=== PATIENT | male | born 1970 | race Caucasian/White ===

== ENCOUNTER 2019-01-12 11:08 | Outpatient (CLI) | payer MEDICAID, SELFPAY ==
[2019-01-12 18:03] LABS: ALT 32 U/L (12-78); AST 23 U/L (15-37); Albumin 4.5 g/dL (3.4-5.0); Alkaline Phosphatase 56 U/L (46-116); Bilirubin, Direct 0.18 mg/dL (0.00-0.20); Bilirubin, Total 0.7 mg/dL (0.2-1.0); Total Protein 7.9 g/dL (6.4-8.2)
[2019-01-12 18:25] LABS: Cholesterol 302 mg/dL (50-200); HDL Cholesterol 67 mg/dL (40-60); LDL CHOLESTEROL 196 mg/dL (<100); Triglyceride 158 mg/dL (30-150)
== END 2019-01-12 11:28 ==
PROVIDERS: Visit Provider Internal Medicine Interventional Cardiology
DX: E78.5 Hyperlipidemia, unspecified (principal); R07.9 Chest pain, unspecified; I10 Essential (primary) hypertension
CPT/HCPCS: 36415; 80061; 80076; 83721; 93005; 93010

== ENCOUNTER 2019-04-24 09:42 | Outpatient (CLI) | payer MEDICAID, SELFPAY ==
[2019-04-24 11:52] LABS: Glucose 99 mg/dL (70-100)
== END 2019-04-24 10:02 ==
PROVIDERS: PCP General Practice; Visit Provider General Practice
DX: Z00.00 Encounter for general adult medical examination without abnormal findings (principal); Z13.1 Encounter for screening for diabetes mellitus
CPT/HCPCS: 36415; 82947

== ENCOUNTER 2019-10-15 12:42 | Emergency (ER) | payer MEDICAID, SELFPAY ==
[2019-10-15] VITALS (19 sets, daily range): BP systolic 127–144; BP diastolic 72–86; PULSE 77–103; RESP 14–28; TEMP 36.1–36.3; O2SAT 91–99
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
[2019-10-15 13:20] LABS: Magnesium 2.1 mg/dL (1.8-2.4)
[2019-10-15 13:21] LABS: Abs Immature Grans 0.06 k/cumm (0.0-0.09); Absolute Basophil Count 0.04 k/cumm (0.0-0.2); Absolute Eosinophil Count 0.49 k/cumm (0.0-0.7); Absolute Lymphocyte Count 2.08 k/cumm (1.2-3.4); Absolute Monocyte Count 0.95 k/cumm (0.11-0.7); Absolute Neutrophil Count 6.61 k/cumm (1.2-6.7); Basophils % 0.4; Eosinophils % 4.8; HCT 45.3 % (40.0-50.0); HGB 14.9 g/dL (13.5-17.5); Immature Grans % 0.6 %; Lymphocytes % 20.3; Mean Corp. HGB Concentration 32.9 g/dL (32.0-36.0); Mean Corpuscular Hemoglobin 27.2 pg (27.0-33.0); Mean Corpuscular Volume 82.7 fL (80-95); Monocytes % 9.3; Neutrophils % 64.6; Platelet Count 257 x1000/uL (130-400); RBC 5.48 m/cumm (4.50-6.00); RBC Distribution Width 13.7 % (11.8-14.1); White Blood Cell Count 10.23 k/cumm (4.4-10.8)
[2019-10-15 13:22] LABS: Troponin I < 0.05 ng/Ml (<0.06)
[2019-10-15] MEDS: Omnipaque 350 MG/ML 100 ML BTL IJ (13:29)
[2019-10-15] MEDS: Normal Saline - Diluent 50 ML VIAL IV (13:30)
[2019-10-15] MEDS: fentaNYL 100 MCG/2 ML VIAL IVP ×2 (13:33→14:12)
[2019-10-15 13:36] LABS: Prothrombin Time 9.9 sec (9.3-11.0)
[2019-10-15] MEDS: levoFLOXacin 750 MG/150 ML BAG 100 MG IVPB (14:12)
[2019-10-15] MEDS: Acetaminophen 500 MG TAB (14:55)
[2019-10-15] MEDS: HYDROmorphone 2 MG/ML VIAL (14:56)
== END 2019-10-15 15:13 | disposition short-term general hospital (02) ==
PROVIDERS: Emergency Provider Emergency Medicine; PCP General Practice
DX: S02.832A Fracture of medial orbital wall, left side, initial encounter for closed fracture (principal); V48.5XXA Car driver injured in noncollision transport accident in traffic accident, initial encounter; H11.32 Conjunctival hemorrhage, left eye; R05 Cough
CPT/HCPCS: 74177; 90471; 93005; 96365; 96372; 96375; 96376; 99285; 70450; 70480; 71260; 72125; 83735; 84484; 85025; 85610; 85730; 93010; J1956; J3010; J3490; L0172

== ENCOUNTER 2019-12-10 18:41 | Outpatient (REF) | payer MEDICAID, SELFPAY ==
[2019-12-10 18:55] LABS: ALT 37 U/L (16-63); AST 31 U/L (15-37); Albumin 4.1 g/dL (3.4-5.0); Alkaline Phosphatase 50 U/L (46-116); Anion Gap 11.8 mmol/L (3-11); BUN 16 mg/dL (7-18); Bilirubin, Total 0.6 mg/dL (0.2-1.0); CO2 26.2 mmol/L (21.0-32.0); CREATININE 1.35 mg/dL (0.70-1.30); Calcium 9.2 mg/dL (8.5-10.1); Calculated LDL 173 mg/dL (<100); Chloride 102 mmol/L (98-107); Cholesterol 252 mg/dL (<200); Estimated GFR 56.65 (mL/min/1.73m2); Glucose 101 mg/dL (74-106); HDL Cholesterol 42 mg/dL (40-60); Sodium 140 mmol/L (136-145); Total Protein 7.3 g/dL (6.4-8.2); Triglyceride 185 mg/dL (<150)
== END 2019-12-10 19:01 ==
LOC: NCHCN 18:41
PROVIDERS: PCP General Practice; Visit Provider Nurse Practitioner Family
DX: Z13.1 Encounter for screening for diabetes mellitus (principal); Z13.220 Encounter for screening for lipoid disorders
CPT/HCPCS: 80053; 80061

== ENCOUNTER 2020-12-23 08:58 | Outpatient (REF) | payer MEDICAID, SELFPAY ==
[2020-12-23 17:50] LABS: HCT 46.3 % (40.0-50.0); HGB 15.3 g/dL (13.5-17.5); MCH 27.9 pg (27.0-33.0); MCV 84.3 fL (80-95); MPV 10.6 fL (8.0-11.0); Platelet Count 207 10^3/uL (130-400); RBC 5.49 10^6/uL (4.36-5.78); RDW 13.1 % (11.8-14.1); RDW-SD 40.4 fL; WBC 7.21 10^3/uL (4.4-10.8)
[2020-12-23 18:21] LABS: ALT 39 U/L (16-63); AST 38 U/L (15-37); Albumin 4.4 g/dL (3.4-5.0); Alkaline Phosphatase 43 U/L (46-116); Anion Gap 10.9 mmol/L (3-11); BUN 17 mg/dL (7-18); Bilirubin, Total 0.6 mg/dL (0.2-1.0); CO2 26.1 mmol/L (21.0-32.0); CREATININE 1.2 mg/dL (0.70-1.30); Calcium 9.6 mg/dL (8.5-10.1); Calculated LDL 138 mg/dL (<100); Chloride 101 mmol/L (98-107); Cholesterol 262 mg/dL (<200); Glucose 120 mg/dL (74-106); HDL Cholesterol 55 mg/dL (40-60); Potassium 3.9 mmol/L (3.5-5.1); Sodium 138 mmol/L (136-145); Total Protein 8.2 g/dL (6.4-8.2); Triglyceride 346 mg/dL (<150)
[2020-12-26 10:32] LABS: Hepatitis C Ab w Rflx HCV PCR Negative (Negative)
[2020-12-26 11:59] LABS: HIV-1/2 Ag & Ab Screen Negative (Negative)
== END 2020-12-23 08:59 | disposition home or self-care (01) ==
LOC: LBN 08:58
PROVIDERS: PCP General Practice; Visit Provider Nurse Practitioner Family
DX: E78.5 Hyperlipidemia, unspecified (principal); I10 Essential (primary) hypertension; F10.10 Alcohol abuse, uncomplicated; Z13.1 Encounter for screening for diabetes mellitus; Z51.81 Encounter for therapeutic drug level monitoring; Z11.59 Encounter for screening for other viral diseases; Z11.4 Encounter for screening for human immunodeficiency virus [HIV]
CPT/HCPCS: 80053; 80061; 85027; 86803; 87389

== ENCOUNTER 2023-02-11 08:21 | Day surgery (SDC) | payer MEDICAID, SELFPAY ==
--- NOTE | 2023-02-10 20:16 | W.PM.DSUDISC ---
Date of service: 02/11/23 Time of Service: 11:23 Discharge Plan Disposition Patient Disposition: Home Condition: Good Discharge Details Reason For Visit: Screening colonoscopy Attending Provider: Damián Etienne Primary Care Provider: Aydin Escobar Home Meds and New Rx's Prescriptions: Continued amlodipine 5 MG tablet 5 mg PO DAILY Qty: 90 3RF omeprazole 20 MG capsule,delayed release(DR/EC) 20 mg PO DAILY Qty: 90 3RF hydrochlorothiazide 25 MG tablet 25 mg PO DAILY Qty: 90 3RF losartan 100 mg tablet 100 mg PO DAILY Qty: 90 4RF fenofibrate nanocrystallized [Tricor] 145 mg tablet 145 mg PO DAILY Qty: 90 4RF rosuvastatin 20 mg tablet 20 mg PO DAILY Discontinued polyethylene glycol 3350 17 gram/dose powder 238 g PO ONCE Qty: 238 0RF Rx Instructions: take per colonoscopy instructions bisacodyl [Dulcolax (bisacodyl)] 5 mg tablet,delayed release (DR/EC) 5 mg PO ONCE Qty: 4 0RF Rx Instructions: take per colonoscopy instructions Discharge Instructions Additional Instructions: Ran, you had a completely normal colonoscopy today. We were able to complete the procedure without any difficulty. The quality of your preparation was excellent. I did not see any signs of polyps or tumors. You should consider having another colonoscopy in 10 years to reduce your chances of dying from colon cancer over the course of your lifetime. 1. If tolerated, consume a soft, low fiber diet for 1-2 days. 2[address] Do not drive, drink alcohol, operate machinery, make critical decisions, or do activities that require coordination or balance for 24 hours. 3. Because air was put into your colon during the procedure, expelling air from your rectum (passing gas or farting) is normal. 4. You may not have a bowel movement for 1-3 days because of the colonoscopy prep. This is normal. 5. Go directly to the emergency room if you notice any of the following: Develop chills (warm to touch), or if you have a thermometer and your temperature is above 101 Difficulty breathing or difficultly swallowing Persistent vomiting Severe abdominal pain, other than gas cramps Severe chest pain Black, tarry stools Any bleeding ? exceeding one tablespoon 6. Call your physician if the site where your intravenous was started becomes red, swollen, painful, and warm to touch. 7. Your physician has reviewed your pre-procedure medications. Please continue to take those medications as previously ordered. You will be given specific information/education regarding any changes to your medications before leaving. Activity:: Activity as Tolerated Diet:: As Tolerated Discharge Orders Discharge Orders: Discharge Order (Routine); Ordered 02/10/23 Ordered By: Damián Etienne DS: Diagnosis Discharge Diagnosis (1) Screening for colon cancer: Status: Acute Asessment and Plan: Negative screening colonoscopy. He should consider another one in 10 years
--- NOTE | 2023-02-10 20:17 | W.COLOREPORT ---
Date of service: 02/11/23 Time of Service: 11:24 Colonoscopy Report Date of procedure: 02/11/23 Pre-op diagnosis general: Screening colonoscopy Post-op diagnosis procedure note: same Procedure: Colonoscopy Surgeon: Damián Etienne Anesthesia Type: General:No Airway Estimated blood loss (mL): 0 Pathology: none sent Complications: None Disposition: same day Indications: Ran is a 52 year olf man here for his first screening colonoscopy Prep: Miralax/Dulcolax Procedure Start Time: 11:03 Procedure End Time: 11:12 Retraction Time: 6 Findings: Negative screening colonoscopy Procedure Description: After the induction of monitored anesthetic care, and with the patient in left lateral decubitus position, I began by performing an external anorectal exam.? Perineum and skin were normal, as was the anal verge.? There was no not evidence of external hemorrhoids.? Next, I performed a digital rectal exam.? I did appreciate any abnormal findings.? Next, I advanced a colonoscope into the rectal vault.? I performed retroflexion.? This appeared normal.? Using insufflation, I then advanced the colonoscope beyond the rectal folds and into the sigmoid colon before advancing towards the cecum.? The quality of the prep was excellent.? The scope was noted to be in the cecum by identification of the ileocecal valve and appendiceal orifice.? I then began withdrawing the colonoscope using repeated irrigation as necessary for full evaluation of the colonic mucosa. ?Once the scope was withdrawn to the level of the rectum, great care was taken to examine portions of the rectal folds.? I did not see any signs of tumors or polyps. Finally, the scope was withdrawn and the patient was brought to the same-day surgery recovery unit as the anesthetic wore off. ?The findings and instructions were shared with the patient prior to discharge.
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
[2023-02-11 08:41] VITALS: BP 124/78; PULSE 76; RESP 16; TEMP 36.3; O2SAT 97
[2023-02-11] MEDS: Lactated Ringers 1,000 ML 80 ML IV (09:02)
[2023-02-11 09:21] VITALS: BMI 36.5
[2023-02-11 11:16] VITALS: BP 116/79; PULSE 79; RESP 17; TEMP 36.6; O2SAT 96
[2023-02-11 11:45] VITALS: BP 145/93; PULSE 69; RESP 18; TEMP 36.5; O2SAT 96
--- NOTE | 2023-02-11 12:24 | W.ANESPOSTOP ---
Postoperative Evaluation Date, Time and Location Date Performed: 02/11/23 Time Performed: 12:25 Patient Location: Day Surgery Unit Vital Signs Most Recent Imported Vital Signs: Most Recent Vital Signs Temp Pulse Resp BP Pulse Ox 36.5 C 69 18 145/93 H 96 02/11/23 11:45 02/11/23 11:45 02/11/23 11:45 02/11/23 11:45 02/11/23 11:45 Pain Score Most Recent Pain Score: Most Recent Pain Score Pain Level 0 02/11/23 11:45 Assessment Mental Status: Awake (Alert & Oriented to Patient Baseline) Airway and Respiratory Function: Patent airway with normal (patient baseline) respiratory exam Cardiovascular Function: Hemodynamically Stable Hydration Status: Adequately Hydrated Nausea & Vomiting: No Nausea or Vomiting Pain: Pt. Denies Any Pain Peripheral Nerve Block: Patient did not receive a nerve block
== END 2023-02-11 11:49 | disposition home or self-care (01) ==
PROVIDERS: PCP Nurse Practitioner Family; Visit Provider Surgery
PROC: 0DJD8ZZ Inspection of Lower Intestinal Tract, Via Natural or Artificial Opening Endoscopic (ICD-10-PCS; CPT 45378; principal; 2023-02-11 10:00)
DX: Z12.11 Encounter for screening for malignant neoplasm of colon (principal)
CPT/HCPCS: 45378

== ENCOUNTER 2023-04-29 20:21 | Outpatient (REF) | payer BC, SELFPAY ==
[2023-04-29 15:04] LABS: Hemoglobin A1C 5.2 % (<5.7)
[2023-04-29 15:20] LABS: ALT 70 U/L (16-63); AST 88 U/L (15-37); Albumin 3.9 g/dL (3.4-5.0); Alkaline Phosphatase 75 U/L (46-116); Anion Gap 12.5 mmol/L (3-11); BUN 18 mg/dL (7-18); Bilirubin, Total 0.6 mg/dL (0.2-1.0); CO2 25.5 mmol/L (21.0-32.0); CREATININE 1.3 mg/dL (0.70-1.30); Calcium 8.9 mg/dL (8.5-10.1); Chloride 100 mmol/L (98-107); Cholesterol 272 mg/dL (<200); Estimated GFR 66.51 (mL/min/1.73m2); Glucose 129 mg/dL (74-106); HDL Cholesterol 29 mg/dL (40-60); Potassium 3.9 mmol/L (3.5-5.1); Sodium 138 mmol/L (136-145); Total Protein 7.6 g/dL (6.4-8.2)
[2023-04-29 15:22] LABS: Triglyceride 1146 mg/dL (<150)
[2023-04-29 15:34] LABS: LDL CHOLESTEROL 94 mg/dL (<100)
[2023-04-29 23:25] LABS: PSA, Screening 0.7 ng/mL (<=3.5)
== END 2023-04-29 20:22 | disposition home or self-care (01) ==
LOC: NCHCN 20:21
PROVIDERS: PCP Physician Assistant; Visit Provider Physician Assistant
DX: Z12.5 Encounter for screening for malignant neoplasm of prostate (principal); Z13.1 Encounter for screening for diabetes mellitus; E78.5 Hyperlipidemia, unspecified
CPT/HCPCS: 80053; 80061; 83721; 84153; 83036

== ENCOUNTER 2024-02-17 10:30 | Emergency (ER) | payer BC, SELFPAY ==
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
[2024-02-17 10:33] VITALS: BP 150/82; PULSE 67; RESP 20; TEMP 37.2; O2SAT 95
[2024-02-17] MEDS: HYDROmorphone 2 MG/ML SYR 0.5 MG IVP (11:12)
[2024-02-17] MEDS: Normal Saline - Diluent 50 ML VIAL IJ (11:17)
[2024-02-17] MEDS: Omnipaque 350 MG/ML 100 ML BTL IJ (11:18)
[2024-02-17 11:23] LABS: Abs Immature Grans 0.02 10^3/uL (0.0-0.06); Absolute Basophil Count 0.05 10^3/uL (0.0-0.2); Absolute Eosinophil Count 0.13 10^3/uL (0.0-0.7); Absolute Lymphocyte Count 1.76 10^3/uL (1.2-3.4); Absolute Monocyte Count 0.56 10^3/uL (0.1-0.8); Absolute Neutrophil Count 3.76 10^3/uL (1.2-6.7); Basophils % 0.8 %; Eosinophils % 2.1 %; HCT 45.3 % (40.0-50.0); Immature Grans % 0.3 %; MCH 28.2 pg (27.0-33.0); MCHC 33.1 % (32.0-36.0); MCV 85 fL (80-95); Monocytes % 8.9 %; Neutrophils % 59.9 %; RBC 5.32 10^6/uL (4.36-5.78); RDW 12.9 % (11.8-14.1); RDW-SD 39.9 fL; WBC 6.28 10^3/uL (4.4-10.8)
[2024-02-17 11:41] LABS: ALT 56 U/L (16-63); AST 58 U/L (15-37); Alkaline Phosphatase 91 U/L (46-116); BUN 17 mg/dL (7-18); Bilirubin, Total 0.4 mg/dL (0.2-1.0); CREATININE 1.1 mg/dL (0.70-1.30); Calcium 8.9 mg/dL (8.5-10.1); Chloride 99 mmol/L (98-107); Diff Comment Diff Reviewed; Estimated GFR 80.77 (mL/min/1.73m2); Glucose 107 mg/dL (74-106); Potassium 3.8 mmol/L (3.5-5.1); RBC Morphology Normal; Sodium 136 mmol/L (136-145)
[2024-02-17] MEDS: Lidocaine 5% Patch 1 PATCH TP (13:06)
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
== END 2024-02-17 13:05 | disposition home or self-care (01) ==
PROVIDERS: Emergency Provider Emergency Medicine; PCP Physician Assistant
DX: S22.42XA Multiple fractures of ribs, left side, initial encounter for closed fracture (principal); R07.82 Intercostal pain; V28.39XA Person boarding or alighting other motorcycle injured in noncollision transport accident, initial encounter
CPT/HCPCS: 36415; 80053; 96374; 99285; 71260; 85025; 99283; J1170; J3490

== ENCOUNTER 2024-02-27 10:56 | Outpatient (REF) | payer BC, SELFPAY ==
[2024-02-27 16:25] LABS: Calculated LDL 98 mg/dL (<100); Cholesterol 203 mg/dL (<200); HDL Cholesterol 58 mg/dL (40-60); Triglyceride 238 mg/dL (<150)
== END 2024-02-27 10:57 | disposition home or self-care (01) ==
LOC: NCHCN 10:56
PROVIDERS: PCP Physician Assistant; Visit Provider Physician Assistant
DX: E78.5 Hyperlipidemia, unspecified (principal)
CPT/HCPCS: 80061

== ENCOUNTER 2024-10-01 10:20 | Outpatient (REF) | payer BC, SELFPAY ==
--- OUTSIDE RECORDS SUMMARY | 2024-10-01 10:21 | XMS_ITS | Encounter Summary ---
Author Organization [facility] Address [address] [place] [address] Care Team Providers Care Academic Services Coordinator Name Role Phone Unavailable Primary Care Provider Unavailabl e Reason for Visit * Reason Comments Other Encounter Details Date Type Department Care Team (Late st Contact Info) Description 09/30/2019 Refill [facility] Clinic [address] [place] [address] Enmanuel Chris NP [address] [place] [address] Other Social History Tobacco Use Types Packs/Day Years Used Date Smoking Tobacco: Never Assessed Sex and Gender Information Value Date Recorded Sex Assigned at Not on file Legal Sex Male 19:33 EDT Gender Identity Not on file Sexual Orientation Not on file documented as of this encounter Plan of Treatment Not on file documented as of this encounter Visit Diagnoses Not on filedocumented in this encounter
--- OUTSIDE RECORDS SUMMARY | 2024-10-01 10:21 | XMS_ITS | Referral Summary ---
Author Organization [facility] Address [address] [place] [address] Care Team Providers Care Nipple Maker Name Role Phone Unavailable Primary Care Provider Unavailabl e Social History Tobacco Use Types Packs/Day Years Used Date Smoking Tobacco: Never Assessed Sex and Gender Information Value Date Recorded Sex Assigned at Not on file Legal Sex Male 19:33 EDT Gender Identity Not on file Sexual Orientation Not on file Plan of Treatment Not on file Procedures Procedure Name Priority Date/Time Associated Diagnosis Comments HEPATITIS C AB W REFLEX TO HCV RNA BY PCR Routine 12/23/2020 8:30 EDT from Last 3 Months or Most Recently Relevant to Health Maintenance Results * HEPATITIS C AB W REFLEX TO HCV RNA BY PCR (12/23/2020 8:30 EDT) Hep C Antibody Negative Negative 12/26/2020 10:26 EDT [facility] Blood VENOUS BLOOD / Unknown 12/23/2020 8:30 EDT 12/25/2020 17:31 EDT us Provider Outr Resulting Lab CHEMISTRY & BLOOD GA S ORDERABLES Final Result [facility] [address] [place] [address] from Last 3 Months or Most Recently Relevant to Health Maintenance
--- OUTSIDE RECORDS SUMMARY | 2024-10-01 10:21 | XMS_ITS | Encounter Summary ---
Author Organization [facility] Address [address] [place] [address] Care Team Providers Care Motor Tester Name Role Phone Unavailable Primary Care Provider Unavailabl e Encounter Details Date Type Department Care Team (Late st Contact Info) Description 12/24/2020 Lab Requisition [facility] Pathology & Laboratory Medicine - [facility] [address] [place] [address] Outr Resulting Lab, Provider Social History Tobacco Use Types Packs/Day Years Used Date Smoking Tobacco: Never Assessed Sex and Gender Information Value Date Recorded Sex Assigned at Not on file Legal Sex Male 19:33 EDT Gender Identity Not on file Sexual Orientation Not on file documented as of this encounter Plan of Treatment Not on file documented as of this encounter Procedures Procedure Name Priority Date/Time Associated Diagnosis Comments HEPATITIS C AB W REFLEX TO HCV RNA BY PCR Routine 12/23/2020 8:30 EDT documented in this encounter Results * HEPATITIS C AB W REFLEX TO HCV RNA BY PCR (12/23/2020 8:30 EDT) Hep C Antibody Negative Negative 12/26/2020 10:26 EDT [facility] Blood VENOUS BLOOD / Unknown 12/23/2020 8:30 EDT 12/25/2020 17:31 EDT us Provider Outr Resulting Lab CHEMISTRY & BLOOD GA S ORDERABLES Final Result [facility] [address] [place] [address] documented in this encounter Visit Diagnoses Not on filedocumented in this encounter
--- OUTSIDE RECORDS SUMMARY | 2024-10-01 10:21 | XMS_ITS | Clinical Summary ---
Author Organization [facility] Address [facility] [place] [address] Care Team Providers Care Line Service Person Name Role Phone Jameel Cuenca MD Primary Care Provider [phone] Allergies No known active allergies Medications Medication Sig Dispensed Refills Start Date End Date Status benzonatate (TESSALON) 100 mg Capsule Take 1 capsule by mouth 3 times daily as needed for Cough. 30 tablet 10/16/2019 Active oxyCODONE (ROXICODONE) 5 mg Tablet Take 1-2 tablets by mouth every 4 hours as needed for Pain. No driving, no alcohol 4 tablet 10/16/2019 Active Social History Tobacco Use Types Packs/Day Years Used Date Smoking Tobacco: Never Assessed Sex and Gender Information Value Date Recorded Sex Assigned at Not on file Gender Identity Not on file Sexual Orientation Not on file Last Filed Vital Signs Vital Sign Reading Time Taken Comments Blood Pressure 132/73 10/16/2019 12:00 PM EST Pulse 76 10/16/2019 12:00 PM EST Temperature 36.5 ??C (97.7 ??F) 10/15/2019 4:27 PM ES T Respiratory Rate 23 10/16/2019 12:00 PM EST Oxygen Saturation 91% 10/16/2019 12:00 PM EST Inhaled Oxygen Concentration - - Weight 111.1 kg (245 lb) 10/15/2019 4:27 PM EST Height 172.7 cm (5' 8) 10/15/2019 4:27 PM EST Body Mass Index 37.25 10/15/2019 4:27 PM EST Plan of Treatment Health Maintenance Due Date Last Done Comments CT Colonography 1971 Colonoscopy 1971 Colorectal Cancer Screening 1971 FIT DNA 1971 FIT 1971 Sigmoidoscopy (10 year) with FIT yearly 1971 Sigmoidoscopy 1971 HIV screen 12/11/1989 Hepatitis C Screening 12/11/1989 Lipid Screening 12/11/1989 Hepatitis B vaccine (0-59 yrs) (1) 12/11/1990 Tetanus/Diphtheria/Pertussis Vaccines (1 - Tdap) 12/11 Zoster vaccine (1 of 2) 12/11/2021 Covid-19 Vaccine (1 - 2023-25 season) 2024 Influenza (Flu) vaccine (1 o f 1 - Influenza standard series) 06/07/2024 Diabetes Screening (HgbA1C or Glucose) Discontinued Procedures Procedure Name Priority Date/Time Associated Diagnosis Comments BASIC METABOLIC PANEL STAT 10/15/2019 5:15 PM EST from Last 3 Months or Most Recently Relevant to Health Maintenance Results * (ABNORMAL) Basic Metabolic Panel (non-fasting) (10/15/2019 5:15 PM EST) Glucose 120 65 - 199 mg/dL [facility] Comment:Diabetes: >=200 mg/d L plus symptoms Blood Urea Nitrogen 15 10 - 20 mg/dL [facility] Creatinine 1.28 0.80 - 1.50 mg/dL [facility] Sodium 134(L) 135 - 145 mmol/L [facility] Potassium 4.1 3.5 - 5.0 mmol/L [facility] Comment: Please note: ??Patients with WBC >100,000 may have falsely elevated Potassium levels. ??For accurate Potassium quantification in these patients send serum separator tube (gold top) for subsequent determinations. ??Contact the Clinical Chemistry Laboratory if there are any questions. Chloride 95(L) 98 - 107 mmol/L [facility] Carbon Dioxide 21(L) 22 - 31 mmol/L [facility] Anion Gap 18(H) 5 - 15 mmol/L [facility] Calcium 9.4 8.5 - 10.5 mg/dL [facility] Est Glomerular Filtration Rate 66 >=60 mL/min/1. 73 m?? [facility] Comment: The eGFR was calculated using the CKD-EPI equation. As with all creatinine based estimates of kidney function, eGFR values calculated with the CKD-EPI equation are not accurate in patients with acute kidney failure, extremes of body mass or the acutely ill. http://WorldE[employer]/DHnkf eGFR 77 >=60 mL/min/1. 73 m?? [facility] Comment: The eGFR was calculated using the CKD-EPI equation. As with all creatinine based estimates of kidney function, eGFR values calculated with the CKD-EPI equation are not accurate in patients with acute kidney failure, extremes of body mass or the acutely ill. [email or web address]/DHnkf Blood specimen (specimen) 10/15/2019 5:15 PM EST 10/15/2019 5:26 PM EST Narrative Resulting Agency Comment Spec In Lab Stone Melgoza MD CHEMISTRY ORDERABLES [facility] [place] [address] from Last 3 Months or Most Recently Relevant to Health Maintenance Advance Directives * Full Code (Latest Code Status on File) Date Activated Date Inactivated Comments 10/15/2019 11:05 PM 10/16/2019 2:53 PM Question Answer Comments Does patient have capacity to make decision: Yes Care Teams Line Service Person Relationship Specialty Start Date End Date Jameel Cuenca MD [address] [facility] [place] [address] PCP - General [facility] 10/15/19
--- OUTSIDE RECORDS SUMMARY | 2024-10-01 10:21 | XMS_ITS | Clinical Summary ---
Author Organization [facility] Address [address] [place] [address] Care Team Providers Care Lock Corner Machine Operator Name Role Phone Unavailable Primary Care Provider Unavailabl e Social History Tobacco Use Types Packs/Day Years Used Date Smoking Tobacco: Never Assessed Sex and Gender Information Value Date Recorded Sex Assigned at Not on file Legal Sex Male 19:33 EDT Gender Identity Not on file Sexual Orientation Not on file Plan of Treatment Health Maintenance Due Date Last Done Comments Hepatitis B Vaccine (1 of 3 - 19+ 3-dose series) 12/11 COVID-19 Vaccine ( season) 2024 Hepatitis C Screen Completed 12/23/2020 Procedures Procedure Name Priority Date/Time Associated Diagnosis Comments HEPATITIS C AB W REFLEX TO HCV RNA BY PCR Routine 12/23/2020 8:30 EDT from Last 3 Months or Most Recently Relevant to Health Maintenance Results * HEPATITIS C AB W REFLEX TO HCV RNA BY PCR (12/23/2020 8:30 EDT) Hep C Antibody Negative Negative 12/26/2020 10:26 EDT [facility] Blood VENOUS BLOOD / Unknown 12/23/2020 8:30 EDT 12/25/2020 17:31 EDT us Provider Outr Resulting Lab CHEMISTRY & BLOOD GA S ORDERABLES Final Result [facility] [address] [place] [address] from Last 3 Months or Most Recently Relevant to Health Maintenance
--- OUTSIDE RECORDS SUMMARY | 2024-10-01 10:21 | XMS_ITS | Encounter Summary ---
Author Organization [facility] Address [facility] [place] [address] Care Team Providers Care Manager Product Marketing Name Role Phone Jameel Cuenca MD Primary Care Provider [phone] Encounter Details Date Type Department Care Team (Late st Contact Info) Description 10/16/2019 1:15 AM EST Ancillary Procedure Radiology Library at [facility] [place] [address] Social History Tobacco Use Types Packs/Day Years Used Date Smoking Tobacco: Never Assessed Sex and Gender Information Value Date Recorded Sex Assigned at Not on file Gender Identity Not on file Sexual Orientation Not on file documented as of this encounter Plan of Treatment Not on file documented as of this encounter Procedures Procedure Name Priority Date/Time Associated Diagnosis Comments REQUEST FOR 2ND READ CT HEAD AND SPINE STAT 10/15/2019 8:23 PM EST documented in this encounter Results * Request For 2nd Read CT Head And Spine (10/15/2019 8:23 PM EST) Anatomical Region Laterality Modality Head, C-spine, T-spine, L-spine SO Impressions 10/16/2019 4:16 AM EST 1. ??No acute intracranial hemorrhage, depressed calvarial fracture, or acute cervical vertebral osseous injury identified. 2. ??Comminuted fracture of the LEFT lamina papyracea. 3. ??Mildly displaced fracture of the floor of the LEFT orbit. 4. ??Trace LEFT intraorbital hemorrhage, with mild proptosis. 5. ??Comminuted nasal bones fracture as well as the nasal septum. Preliminary report signed by: Ilan Cox at 10/16/2019 4:09 AM I have personally reviewed the image(s) and the resident's interpretation and agree with the findings, Miguel Kennedy at 10/16/2019 4:16 AM Thank you for letting us participate in the care of this patient. For questions regarding this report, please contact the number below. ? Narrative 10/16/2019 4:16 AM EST EXAMINATION: REQUEST FOR 2ND READ CT HEAD AND SPINE CLINICAL HISTORY: Trauma; What Modality is the exam? CT Scan; Body Part (please add comments as necessary): Head and spine; I believe a reinterpretation of this exam may alter care of Patient. Yes TECHNIQUE: Reinterpretation request for outside: * ??Noncontrast CT head. * ??Noncontrast CT cervical spine. COMPARISON: None FINDINGS: HEAD: Loera-white interface appears relatively well differentiated. No acute intracranial hemorrhage identified. No significant mass effect appreciated. Included mastoid air cells appear well-aerated. Calvarium appears intact. LEFT periorbital soft tissue swelling also involving the region of the nose as well as extending to the forehead. Comminuted nasal bones fracture as well as the nasal septum. Comminuted fracture of the LEFT lamina papyracea. Mildly displaced fracture of the floor of the LEFT orbit. Trace LEFT intraorbital hemorrhage, with mild proptosis. Near-complete opacification of the maxillary sinuses and ethmoid air cells as well as complete opacification of the RIGHT frontal sinus; hyperdense components in these regions could be any combination of blood products, proteinaceous/subcutaneous secretions, fungal colonization. Mucosal thickening in the RIGHT sphenoid sinus. LEFT sphenoid sinus polyp or mucous retention cyst. CERVICAL SPINE: No evidence of acute traumatic malalignment appreciated. No acute fracture identified. Unremarkable prevertebral soft tissues. Procedure Note Miguel Kennedy MD - 10/16/2019 EXAMINATION: REQUEST FOR 2ND READ CT HEAD AND SPINE CLINICAL HISTORY: Trauma; What Modality is the exam? CT Scan; Body Part(please add comments as necessary): Head and spine; I believe a reinterpretationof this exam may alter care of Patient. Yes TECHNIQUE: Reinterpretation request for outside: * Noncontrast CT head. * Noncontrast CT cervical spine. COMPARISON: None FINDINGS: HEAD: Loera-white interface appears relatively well differentiated. No acute intracranial hemorrhage identified. No significant mass effect appreciated. Included mastoid air cells appear well-aerated. Calvarium appears intact. LEFT periorbital soft tissue swelling also involving the region of thenose as well as extending to the forehead. Comminuted nasal bones fracture as well as the nasal septum. Comminutedfracture of the LEFT lamina papyracea. Mildly displaced fracture of the floor ofthe LEFT orbit. Trace LEFT intraorbital hemorrhage, with mild proptosis.Near-complete opacification of the maxillary sinuses and ethmoid air cells as well ascomplete opacification of the RIGHT frontal sinus; hyperdense components in theseregions could be any combination of blood products, proteinaceous/subcutaneous secretions, fungal colonization. Mucosal thickening in the RIGHT sphenoidsinus. LEFT sphenoid sinus polyp or mucous retention cyst. CERVICAL SPINE: No evidence of acute traumatic malalignment appreciated. No acute fracture identified. Unremarkable prevertebral soft tissues. IMPRESSION 1. No acute intracranial hemorrhage, depressed calvarial fracture, oracute cervical vertebral osseous injury identified. 2. Comminuted fracture of the LEFT lamina papyracea. 3. Mildly displaced fracture of the floor of the LEFT orbit. 4. Trace LEFT intraorbital hemorrhage, with mild proptosis. 5. Comminuted nasal bones fracture as well as the nasal septum. Preliminary report signed by: Ilan Cox at 10/16/2019 4:09 AM I have personally reviewed the image(s) and the resident's interpretationand agree with the findings, Miguel Kennedy at 10/16/2019 4:16 AM Thank you for letting us participate in the care of this patient. Forquestions regarding this report, please contact the number below. Stone Melgoza MD IMG OUTSIDE INTERPRE TATION ORDERABLES documented in this encounter Visit Diagnoses Not on filedocumented in this encounter Care Teams Manager Product Marketing Relationship Specialty Start Date End Date Jameel Cuenca MD [address] [facility] [place] [address] PCP - [facility] Medicine 10/15/19 documented as of this encounter
--- OUTSIDE RECORDS SUMMARY | 2024-10-01 10:21 | XMS_ITS | Encounter Summary ---
Author Organization [facility] Address [address] [place] [address] Care Team Providers Care Engine Cowling Installer Name Role Phone Unavailable Primary Care Provider Unavailabl e Encounter Details Date Type Department Care Team (Late st Contact Info) Description 04/29/2023 Lab Requisition [facility] Pathology & Laboratory Medicine - [facility] [address] [place] [address] Outr Resulting Lab, Provider Social History Tobacco [...] Procedure Name Priority Date/Time Associated Diagnosis Comments PSA TOTAL, DIAGNOSTIC Routine 04/29/2023 8:20 EDT documented in this encounter Results * PSA TOTAL, DIAGNOSTIC (04/29/2023 8:20 EDT) PSA 0.7 <=3.5 ng/mL 04/29/2023 23:20 EDT [facility] Blood VENOUS BLOOD / Unknown 04/29/2023 8:20 EDT 04/29/2023 21:46 EDT Narrative [facility] - 04/29/2023 23:20 EDT NOTE: Serum PSA concentration should not be interpreted as absolute evidence for the presence or absence of malignant disease. Assayed on Siemens ADVIA Centaur XPT using chemiluminescent technology.??Values obtained by using different assay methods cannot be used interchangeably. us Provider Outr Resulting Lab CHEMISTRY & BLOOD GA S ORDERABLES Final Result [facility] [address] [place] [address] documented in this encounter Visit Diagnoses Not on filedocumented in this encounter
--- OUTSIDE RECORDS SUMMARY | 2024-10-01 10:21 | XMS_ITS | Encounter Summary ---
Author Organization [facility] [address] [place] [address] Care Team Providers Care Family Assessment Worker Name Role Phone Jameel Cuenca MD Primary Care Provider [phone] Encounter Details Date Type Department Care Team (Latest Contact Info) Description 10/16/2019 5:20 AM EST - 10/16/2019 11:59 PM EST Hospital Encounter Non-Invasive Cardiology Lab [facility] [place] [phone] Discharge Disposition: Home Social History Tobacco Use Types Packs/Day Years Used Date Smoking Tobacco: Never Assessed Sex and Gender Information Value Date Recorded Sex Assigned at Not on file Gender Identity Not on file Sexual Orientation Not on file documented as of this encounter Medications at Time of Discharge Medication Sig Dispensed Refills Start Date End Date benzonatate (TESSALON) 100 mg Capsule Take 1 capsule by mouth 3 times daily as needed for Cough. 30 tablet 10/16/2019 oxyCODONE (ROXICODONE) 5 mg Tablet Take 1-2 tablets by mouth every 4 hours as needed for Pain. No driving, no alcohol 4 tablet 10/16/2019 documented as of this encounter Plan of Treatment Not on file documented as of this encounter Procedures Procedure Name Priority Date/Time Associated Diagnosis Comments ECHO COMPLETE W CONTRAST Routine 10/16/2019 10:52 AM EST Syncope and collapse documented in this encounter Visit Diagnoses Not on filedocumented in this encounter Administered Medications Inactive Administered Medications - up to 3 most recent administrations Medication Order MAR Action Action Date Dose Rate Site perflutren protein-A microspheres (OPTISON) 0.22 mg/mL injection 0.5 mL 0.5 mL, Intravenous, ONCE PRN, 1 dose, Starting on Sat10/16/19 at 1052, Until Sat10/16/19 at 0930, for enhancement of sub-optimal echo images, Echo Lab (Intra-Procedure), Routine Given 10/16/2019 9:30 AM EST 1.2 mLs documented in this encounter Care Teams Family Assessment Worker Relationship Specialty Start Date End Date Jameel Cuenca MD [address] [facility] [facility] [place] [address] PCP - [facility] Medicine 10/15/19 documented as of this encounter
--- OUTSIDE RECORDS SUMMARY | 2024-10-01 10:21 | XMS_ITS | Encounter Summary ---
Author Organization [facility] Address [address] [place] [address] Care Team Providers Care Merchandise Flow Associate Name Role Phone Unavailable Primary Care Provider Unavailabl e Encounter Details Date Type Department Care Team (Late st Contact Info) Description 12/24/2020 Lab Requisition [facility] Pathology & Laboratory Medicine - [facility] [address] [place] [address] Outr Resulting Lab, Provider Social History Tobacco [...] Procedure Name Priority Date/Time Associated Diagnosis Comments HIV 1/2 ANTIGEN AND ANTIBODY, 4TH GENERATION Routine 12/23/2020 8:30 EDT documented in this encounter Results * HIV 1/2 ANTIGEN AND ANTIBODY, 4TH GENERATION (12/23/2020 8:30 EDT) HIV 1 and 2 Antibody/p24 Antigen, 4th Generation Negative Negative 12/26/2020 11:53 EDT [facility] Comment: If acute HIV-1 infection is suspected in a high risk ??patient, submit plasma specimen for HIV-1 RNA quantitation test. Fourth Generation assay performed on the Siemens Centaur. Blood VENOUS BLOOD / Unknown 12/23/2020 8:30 EDT 12/25/2020 17:31 EDT us Provider Outr Resulting Lab IMMUNOLOGY AND SEROL OGY ORDERABLES Final Result [facility] [address] [place] [address] documented in this encounter Visit Diagnoses Not on filedocumented in this encounter
--- OUTSIDE RECORDS SUMMARY | 2024-10-01 10:21 | XMS_ITS | Encounter Summary ---
Author Organization [facility] Address [facility] [place] [address] Care Team Providers Care Landing Man Name Role Phone Jameel Cuenca MD Primary Care Provider [phone] Encounter Details Date Type Department Care Team (Late st Contact Info) Description 10/16/2019 1:00 AM EST Ancillary Procedure Radiology Library at [facility] [place] [address] Social History Tobacco Use Types Packs/Day Years [...] Diagnosis Comments REQUEST FOR 2ND READ CT FACE STAT 10/15/2019 6:00 PM EST documented in this encounter Results * Request for 2nd read CT Face (10/15/2019 6:00 PM EST) Anatomical Region Laterality Modality Head SO Impressions 10/16/2019 4:23 AM EST 1. ??Comminuted fracture of the LEFT lamina papyracea. 2. ??Mildly displaced fracture of the floor of the LEFT orbit. 3. ??Trace LEFT intraorbital hemorrhage, with mild proptosis. 4. ??Comminuted nasal bones fracture as well as the nasal septum. Preliminary report signed by: Ilan Cox at 10/16/2019 1:51 AM I have personally reviewed the image(s) and the resident's interpretation and agree with the findings, Miguel Kennedy at 10/16/2019 4:23 AM Thank you for letting us participate in the care of this patient. For questions regarding this report, please contact the number below. ? Narrative 10/16/2019 4:23 AM EST EXAMINATION: REQUEST FOR 2ND READ CT FACE CLINICAL HISTORY: [place]; What Modality is the exam? CT Scan; Body Part (please add comments as necessary): face, orbit; I believe a reinterpretation of this exam may alter care of Patient. Yes TECHNIQUE: Reinterpretation request for outside noncontrast CT facial bones COMPARISON: None FINDINGS: Please note, the maxilla is partially excluded from the [id number] and the mandible is entirely excluded from the [id number] other than the condyles and coronoid processes. Comminuted nasal bones fracture as well as the nasal septum. Comminuted fracture of the LEFT lamina papyracea. Mildly displaced fracture of the floor of the LEFT orbit. Trace LEFT intraorbital hemorrhage and air, with mild proptosis. Near-complete opacification of the maxillary sinuses and ethmoid air cells as well as complete opacification of the RIGHT frontal sinus; hyperdense components in these regions could be any combination of blood products, proteinaceous/subcutaneous secretions, fungal colonization. Mucosal thickening in the RIGHT sphenoid sinus. LEFT sphenoid sinus polyp or mucous retention cyst. Impression impacted LEFT wisdom tooth. Subcutaneous soft tissue swelling overlying the LEFT malar region. Procedure Note Miguel Kennedy MD - 10/16/2019 EXAMINATION: REQUEST FOR 2ND READ CT FACE CLINICAL HISTORY: [place]; What Modality is the exam? CT Scan; Body Part(please add comments as necessary): face, orbit; I believe a reinterpretation ofthis exam may alter care of Patient. Yes TECHNIQUE: Reinterpretation request for outside noncontrast CT facial bones COMPARISON: None FINDINGS: Please note, the maxilla is partially excluded from the [id number]-rv-[id number] andthe mandible is entirely excluded from the [id number]-rc-[id number] other than thecondyles and coronoid processes. Comminuted nasal bones fracture as well as the nasal septum. Comminutedfracture of the LEFT lamina papyracea. Mildly displaced fracture of the floor ofthe LEFT orbit. Trace LEFT intraorbital hemorrhage and air, with mild proptosis. Near-complete opacification of the maxillary sinuses and ethmoid air cellsas well as complete opacification of the RIGHT frontal sinus; hyperdensecomponents in these regions could be any combination of blood products, proteinaceous/subcutaneous secretions, fungal colonization. Mucosalthickening in the RIGHT sphenoid sinus. LEFT sphenoid sinus polyp or mucous retentioncyst. Impression impacted LEFT wisdom tooth. Subcutaneous soft tissue swelling overlying the LEFT malar region. IMPRESSION 1. Comminuted fracture of the LEFT lamina papyracea. 2. Mildly displaced fracture of the floor of the LEFT orbit. 3. Trace LEFT intraorbital hemorrhage, with mild proptosis. 4. Comminuted nasal bones fracture as well as the nasal septum. Preliminary report signed by: Ilan Cox at 10/16/2019 1:51 AM I have personally reviewed the image(s) and the resident's interpretationand agree with the findings, Miguel Kennedy at 10/16/2019 4:23 AM Thank you for letting us participate in the care of this patient. Forquestions regarding this report, please contact the number below. Stone Melgoza MD IMG OUTSIDE INTERPRE TATION ORDERABLES documented in this encounter Visit Diagnoses Not on filedocumented in this encounter Care Teams Landing Man Relationship Specialty Start Date End Date Jameel Cuenca MD [address] [place] [address] [place] [address] PCP - [facility] Medicine 10/15/19 documented as of this encounter
--- OUTSIDE RECORDS SUMMARY | 2024-10-01 10:21 | XMS_ITS | Encounter Summary ---
Author Organization [facility] Address [facility] [place] [address] Care Team Providers Care Direct Support Professional Caregiver Name Role Phone Jameel Cuenca MD Primary Care Provider [phone] Encounter Details Date Type Department Care Team (Late st Contact Info) Description 10/16/2019 12:45 AM EST Ancillary Procedure Radiology Library at [facility] [place] [id number] Social History Tobacco Use Types Packs/Day Years [...] Diagnosis Comments REQUEST FOR 2ND READ CT CHEST ABDOMEN PELVIS STAT 10/15/2019 5:38 PM EST documented in this encounter Results * Request For 2nd Read CT Chest Abdomen Pelvis (10/15/2019 5:38 PM EST) Anatomical Region Laterality Modality Chest, Abdomen, Pelvis SO Impressions 10/15/2019 6:08 PM EST No acute injury is identified. Thank you for letting us participate in the care of this patient. For questions regarding this report, please contact the number below. ? Narrative 10/15/2019 6:08 PM EST EXAMINATION: REQUEST FOR 2ND READ CT CHEST ABDOMEN PELVIS CLINICAL HISTORY: Trauma; What Modality is the exam? CT Scan; Body Part (please add comments as necessary): tye/abd/pel; I believe a reinterpretation of this exam may alter care of Patient. Yes TECHNIQUE: Helical CT of the chest, abdomen, and pelvis was performed following the intravenous administration of contrast. Omnipaque 350, the volume is not specified.. Oral contrast was administered. COMPARISON: None FINDINGS: Chest: Lungs and large airways: Normal. Pleura: No effusion. Heart/vasculature: Normal. Lymph nodes: No enlarged lymph nodes. Mediastinum and soraida: Normal. Abdomen/pelvis: Liver: Size of liver is normal. No focal lesion or injury is identified. The attenuation is relatively low suggesting a degree of hepatic steatosis. Bile ducts: Nondilated. Gallbladder: No calcified gallstones. Normal caliber wall. Pancreas: Normal attenuation without ductal dilatation. Spleen: Normal. Adrenals: Normal. Kidneys: Kidneys are normal. No ureteral dilatation or filling defect. There is no perinephric edema. Urinary Bladder: Normal. Vasculature: There is scattered atherosclerotic calcification. Lymph Nodes: ??There is a portacaval lymph node measuring approximately 1 cm. Several additional smaller lymph nodes are also present in the retroperitoneum. Bowel: Nondilated, no wall thickening. ?? Peritoneum and mesentery: No ascites, free air, or loculated fluid collection. No mesenteric inflammation. Abdominal wall: Normal. Osseous structures: No fracture. There is vertebral body deformity and ankylosis involving T10-T12 consistent with either remote trauma or infection. No acute injury is seen. Procedure Note Facundo García MD - 10/15/2019 EXAMINATION: REQUEST FOR 2ND READ CT CHEST ABDOMEN PELVIS CLINICAL HISTORY: Trauma; What Modality is the exam? CT Scan; Body Part(please add comments as necessary): tye/abd/pel; I believe a reinterpretation ofthis exam may alter care of Patient. Yes TECHNIQUE: Helical CT of the chest, abdomen, and pelvis was performedfollowing the intravenous administration of contrast. Omnipaque 350, the volume isnot specified.. Oral contrast was administered. COMPARISON: None FINDINGS: Chest: Lungs and large airways: Normal. Pleura: No effusion. Heart/vasculature: Normal. Lymph nodes: No enlarged lymph nodes. Mediastinum and soraida: Normal. Abdomen/pelvis: Liver: Size of liver is normal. No focal lesion or injury is identified.The attenuation is relatively low suggesting a degree of hepatic steatosis. Bile ducts: Nondilated. Gallbladder: No calcified gallstones. Normal caliber wall. Pancreas: Normal attenuation without ductal dilatation. Spleen: Normal. Adrenals: Normal. Kidneys: Kidneys are normal. No ureteral dilatation or filling defect.There is no perinephric edema. Urinary Bladder: Normal. Vasculature: There is scattered atherosclerotic calcification. Lymph Nodes: There is a portacaval lymph node measuring approximately 1cm. Several additional smaller lymph nodes are also present in theretroperitoneum. Bowel: Nondilated, no wall thickening. Peritoneum and mesentery: No ascites, free air, or loculated fluidcollection. No mesenteric inflammation. Abdominal wall: Normal. Osseous structures: No fracture. There is vertebral body deformity andankylosis involving T10-T12 consistent with either remote trauma or infection. Noacute injury is seen. IMPRESSION No acute injury is identified. Thank you for letting us participate in the care of this patient. Forquestions regarding this report, please contact the number below. Stone Melgoza MD IMG OUTSIDE INTERPRE TATION ORDERABLES documented in this encounter Visit Diagnoses Not on filedocumented in this encounter Care Teams Direct Support Professional Caregiver Relationship Specialty Start Date End Date Jameel Cuenca MD [address] [facility] [place] [address] PCP - [facility] Medicine 10/15/19 documented as of this encounter
--- OUTSIDE RECORDS SUMMARY | 2024-10-01 10:22 | XMS_ITS | Encounter Summary ---
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 for Troponin T is less than 0.01 ng/mL, any detectable cTnT concentration using this assay should be considered elevated. According to the third universal definition of myocardial infarction the following criteria with a clinical presentation consistent with acute myocardial ischemia meets the diagnosis for a myocardial infarction (DE). Detection of a rise and/or fall of cTnT, with at least one value greater than the 99th percentile (> or = 0.01) and with at least one of the following ?? Symptoms of ischemia ?? New or presumed new significant MD-jeltfhz-E wave (ST-T) changes or new left bundle branch block (LBBB) ?? Development of pathologic Q waves in the ECG ?? Imaging evidence of new loss of viable myocardium or new regional wall motion abnormality ?? Identification of an intracoronary thrombus by angiography or autopsy Samples for cTnT testing should be obtained serially upon first assessment and again 3 to 6 hours later. If the clinical suspicion is high and previous samples have been negative an additional sample may be indicated. Reference: Third Bison Definition of Myocardial Infarction. Journal of the [employer] College [employer]iology 2012;60:1581-98 Blood specimen (specimen) 10/15/2019 11:20 PM EST 10/15/2019 11:27 PM EST Narrative Resulting Agency Comment Spec In Lab Stone Melgoza MD CHEMISTRY ORDERABLES [facility] [place] [address] * Request For 2nd Read CT Head [...] number below. Stone Melgoza MD IMG OUTSIDE [facility] ORDERABLES * Request for 2nd read CT Face [...] the maxilla is partially excluded from the dykfk-rf-kruz and the mandible is entirely excluded from the pysxv-ik-ilut other than the condyles and coronoid processes. [...] the maxilla is partially excluded from the pncwh-sj-hshc andthe mandible is entirely excluded from the ehmww-jx-zrbg other than thecondyles and coronoid processes. Comminuted [...] Melgoza MD IMG OUTSIDE INTERPRE TATION ORDERABLES * CT Angiogram Chest (Non-Coronary) w Contrast (10/15/2019 5:59 PM EST) Anatomical Region Laterality Modality Chest Computed Tomogra phy Impressions 10/15/2019 6:02 PM EST No acute aortic injury. Hepatic steatosis Thank you for letting us participate in the care of this patient. For questions regarding this report, please contact the number below. ? Narrative 10/15/2019 6:02 PM EST EXAMINATION: CT ANGIOGRAM CHEST (NON-CORONARY)W CONTRAST CLINICAL HISTORY: Chest trauma, blunt, aortic injury suspected TECHNIQUE: Helical CT angiogram of the chest was performed following the intravenous administration of contrast. 71 cc of Omnipaque 350. 3D images were generated on an independent workstation. COMPARISON: Outside study from earlier today from 10/15/2019 FINDINGS: VASCULAR Heart: Normal size. Aorta: No stenosis or aneurysm. No traumatic injury. The previously noted ill definition of the aortic root on the outside study is due to pulsation artifact. No aortic wall thickening. Great vessels: No stenosis or aneurysm. Celiac/SMA: No stenosis or aneurysm. NON-VASCULAR Lungs and large airways: Within normal limits. Pleura: Within normal limits. No pleural effusions Mediastinum and soraida: Within normal limits. No free fluid Limited views of the upper abdomen: Diffuse hepatic low-attenuation, compatible with hepatic steatosis Osseous structures: Within normal limits. Procedure Note Carlos Gaytan MD - 10/15/2019 EXAMINATION: CT ANGIOGRAM CHEST (NON-CORONARY)W CONTRAST CLINICAL HISTORY: Chest trauma, blunt, aortic injury suspected TECHNIQUE: Helical CT angiogram of the chest was performed following the intravenous administration of contrast. 71 cc of Omnipaque 350. 3D imageswere generated on an independent workstation. COMPARISON: Outside study from earlier today from 10/15/2019 FINDINGS: VASCULAR Heart: Normal size. Aorta: No stenosis or aneurysm. No traumatic injury. The previously notedill definition of the aortic root on the outside study is due to pulsationartifact. No aortic wall thickening. Great vessels: No stenosis or aneurysm. Celiac/SMA: No stenosis or aneurysm. NON-VASCULAR Lungs and large airways: Within normal limits. Pleura: Within normal limits. No pleural effusions Mediastinum and soraida: Within normal limits. No free fluid Limited views of the upper abdomen: Diffuse hepatic low-attenuation,compatible with hepatic steatosis Osseous structures: Within normal limits. IMPRESSION No acute aortic injury. Hepatic steatosis Thank you for letting us participate in the care of this patient. Forquestions regarding this report, please contact the number below. Stone Melgoza MD [facility] CT ORDERABLES * Request For 2nd Read CT Chest [...] report, please contact the number below. Stone eMlgoza MD IMG OUTSIDE INTERPRE TATION ORDERABLES * EKG 12 Lead (10/15/2019 5:28 PM EST) Ventricular rate 79 BPM MUSE SYSTEM Atrial Rate 79 BPM MUSE SYSTEM P-R Interval 146 ms MUSE SYSTEM QRS Duration 78 ms MUSE SYSTEM Q-T Interval 364 ms MUSE SYSTEM QTC Calculated (Bezet) 417 ms MUSE SYSTEM Calculated P Gray 40 degrees MUSE SYSTEM Calculated R Gray -12 degrees MUSE SYSTEM Calculated T Gray 22 degrees MUSE SYSTEM INTERPRETATION Normal sinus rhythm with sinus arrhythmia Nonspecific T wave abnormality Abnormal ECG No previous ECGs available Confirmed by Lea Bender (Elaine) on 10/15/2019 7:44:57 PM MUSE SYSTEM 10/15/2019 5:28 PM EST 10/15/2019 7:44 PM EST Stone Melgoza MD ECG ORDERABLES MUSE SYSTEM * Loera Tube Hold (10/15/2019 5:15 PM EST) Loera Hold Sample in lab. [facility] Blood specimen (specimen) Venous Draw / Unknown 10/15/2019 5:15 PM EST 10/15/2019 5:27 PM EST Deven Jenkins MD CHEMISTRY ORDER MESHA Performing Organization Address City/[facility]/ZIP Co de Phone Number [facility] [place] [address] * Gold Tube HOLD (10/15/2019 5:15 PM EST) [facility] Gold Hold Sample in lab. [facility] Blood specimen (specimen) Venous Draw / Unknown 10/15/2019 5:15 PM EST 10/15/2019 5:28 PM EST Deven Jenkins MD CHEMISTRY ORDER MESHA Performing Organization Address [facility] Co de Phone Number [facility] [place] [address] * Blue Tube HOLD (10/15/2019 5:15 PM EST) [facility] Blue Hold Sample in lab. [facility] Blood specimen (specimen) Venous Draw / Unknown 10/15/2019 5:15 PM EST 10/15/2019 5:28 PM EST Deven Jenkins MD HEMATOLOGY KRISTOPHER BOSE Performing Organization Address [facility] Co de Phone Number [facility] [place] [address] * (ABNORMAL) Differential, Automated (10/15/2019 5:15 PM EST) [facility] Neutrophil % 80.4 % [facility] Neutrophil Absolute 9.20(H) 1.70 - 6.10 x10(3)/mc L [facility] Lymph % 9.3 % [facility] Lymphocytes Abs 1.1 0.9 - 3.2 x10(3)/mc L [facility] Monocyte % 8.3 % [facility] Monocyte Abs 1.0(H) 0.3 - 0.9 x10(3)/mc L [facility] Eos % 1.0 % [facility] Eosinophils Abs 0.1 0.0 - 0.4 x10(3)/[facility] LABORATORY Basophil % 0.4 % [facility] Baso Absolute 0.0 0.0 - 0.1 x10(3)/[facility] LABORATORY Immature Gran % 0.60 % [facility] Comment: Immature granulocytes(IG's)percentage and absolute count will include metamyelocytes, myelocytes, and promyelocytes. Blood smears from CBCs yielding IG's will be scanned manually for concordance. If this scan disagrees with the automated IG or if promyelocytes are noted, a manual differential will be performed. Immature Gran Absolute 0.07(H) 0.00 - 0.04 x10(3)/[facility] LABORATORY Blood specimen (specimen) 10/15/2019 5:15 PM EST 10/15/2019 5:26 PM EST Narrative Resulting Agency Comment Spec In Lab Deven Jenkins MD HEMATOLOGY KRISTOPHER BOSE [facility] [place] [place] [address] * (ABNORMAL) Hemogram (10/15/2019 5:15 PM EST) White Blood Cell 11.5(H) 4.0 - 9.5 x10(3)/[facility] LABORATORY Red Blood Cell 5.30 4.58 - 5.54 x10(6)/[facility] LABORATORY Hemoglobin 14.8 13.7 - 16.5 gm/dL [facility] Hematocrit 45.4 40.5 - 48.5 % [facility] Mean Cell Volume 85.7 82.9 - 93.1 fL [facility] Mean Cell Hemoglobin 27.9 27.5 - 32.1 pg [facility] Mean Cell Hemoglobin Concentration 32.6 32.0 - 35.7 gm/dL [facility] Platelet 225 145 - 357 x10(3)/mc L [facility] RDW Standard Deviation 41.3 36.0 - 45.0 fL [facility] RDW coefficient of variation 13.2 11.4 - 13.8 % [facility] Mean Platelet Volume 11.0 7.6 - 12.9 fL [facility] NRBC% auto 0.0 % [facility] NRBC Absolute 0.000 0.000 - 0.000 x10(3)/mc L [facility] Blood specimen (specimen) 10/15/2019 5:15 PM EST 10/15/2019 5:26 PM EST Narrative Resulting Agency Comment Spec In Lab Deven Jenknis MD HEMATOLOGY KRISTOPHER BOSE [facility] [place] [place] [address] * Troponin (10/15/2019 5:15 PM EST) Troponin-T <0.01 0.00 - 0.00 ng/mL [facility] Comment: The 99th percentile for Troponin T is less than 0.01 ng/mL, any detectable cTnT concentration using this assay should be considered elevated. According to the third universal definition of myocardial infarction the following criteria with a clinical presentation consistent with acute myocardial ischemia meets the diagnosis for a myocardial infarction (DE). Detection of a rise and/or fall of cTnT, with at least one value greater than the 99th percentile (> or = 0.01) and with at least one of the following ?? Symptoms of ischemia ?? New or presumed new significant TE-pqqhklv-L wave (ST-T) changes or new left bundle branch block (LBBB) ?? Development of pathologic Q waves in the ECG ?? Imaging evidence of new loss of viable myocardium or new regional wall motion abnormality ?? Identification of an intracoronary thrombus by angiography or autopsy Samples for cTnT testing should be obtained serially upon first assessment and again 3 to 6 hours later. If the clinical suspicion is high and previous samples have been negative an additional sample may be indicated. Reference: Third Bison Definition of Myocardial Infarction. Journal of the [employer] College of [employer]iology 2012;60:1581-98 Blood specimen (specimen) 10/15/2019 5:15 PM EST 10/15/2019 5:26 PM EST Narrative Resulting Agency Comment Spec In Lab Stone Melgoza MD CHEMISTRY ORDERABLES [facility] [place] [address] * (ABNORMAL) Basic Metabolic Panel (non-fasting) (10/15/2019 5:15 PM EST) Glucose 120 65 - 199 mg/dL [facility] Comment:Diabetes: >=200 mg/d L plus symptoms Blood Urea Nitrogen 15 10 - 20 mg/dL [facility] Creatinine 1.28 0.80 - 1.50 mg/dL [facility] Sodium 134(L) 135 - 145 mmol/L [facility] Potassium 4.1 3.5 - 5.0 mmol/L [facility] Comment: Please note: ??Patients with WBC >100,000 may have falsely elevated Potassium levels. ??For accurate Potassium quantification in these patients send serum separator tube (gold top) for subsequent determinations. ??Contact the Clinical Chemistry Laboratory if there are any questions. Chloride 95(L) 98 - 107 mmol/L [facility] Carbon Dioxide 21(L) 22 - 31 mmol/L [facility] Anion Gap 18(H) 5 - 15 mmol/L [facility] Calcium 9.4 8.5 - 10.5 mg/dL [facility] Est Glomerular Filtration Rate 66 >=60 mL/min/1. 73 m?? [facility] Comment: The eGFR was calculated using the CKD-EPI equation. As with all creatinine based estimates of kidney function, eGFR values calculated with the CKD-EPI equation are not accurate in patients with acute kidney failure, extremes of body mass or the acutely ill. http://[employer] [place]/DHnkf eGFR 77 >=60 mL/min/1. 73 m?? [facility] Comment: The eGFR was calculated using the CKD-EPI equation. As with all creatinine based estimates of kidney function, eGFR values calculated with the CKD-EPI equation are not accurate in patients with acute kidney failure, extremes of body mass or the acutely ill. http://[employer] [place]/DHMCnkf Blood specimen (specimen) 10/15/2019 5:15 PM EST 10/15/2019 5:26 PM EST Narrative Resulting Agency Comment Spec In Lab Stone Melgoza MD CHEMISTRY ORDERABLES Performing Organization Address [facility] Co de Phone Number [facility] [place] [address] * Film Library- Storage Only CT Head And Spine (10/15/2019 2:15 PM EST) Narrative [facility] - 10/15/2019 2:15 PM EST This exam is auto-finalizing. It's purpose is for storage only. Dontae Mckeon MD [facility] FILM LIBRARY ORD ERABLES Performing Organization Address [facility] de Phone Number [place], [place] * Film Library- Storage Only CT Chest Abdomen Pelvis (10/15/2019 2:13 PM EST) Narrative [facility] - 10/15/2019 2:13 PM EST This exam is auto-finalizing. It's purpose is for storage only. Dontae Mckeon MD [facility] FILM LIBRARY ORD ERABLES Performing Organization Address [facility] Co de Phone Number [place], [place] * Film Library- Storage Only CT Head (10/15/2019 2:12 PM EST) Narrative [facility] - 10/15/2019 2:12 PM EST This exam is auto-finalizing. It's purpose is for storage only. Dontae Mckeon MD [facility] FILM LIBRARY ORD ERABLES Performing Organization Address [facility] de Phone Number [place], [place] documented in this encounter Visit Diagnoses Diagnosis Syncope and collapse Closed fracture of left orbital floor, initial encounter documented in this encounter Administered Medications Inactive Administered Medications - up to 3 most recent administrations Medication Order MAR Action Action Date Dose Rate Site benzonatate (Tessalon) 100 mg capsule 1 dose, Starting on Sat10/16/19 at 0530, Until Sat10/16/19 at 0530, JOSEPHINE TORREZ: cabinet override benzonatate (Tessalon) capsule 100 mg 100 mg, Oral, 3 TIMES DAILY, First dose on Sat10/16/19 at 0900, Until Discontinued, DO NOT CRUSH OR OPEN, Routine Given 10/16/2019 9:00 AM EST 100 mg benzonatate (Tessalon) capsule 100 mg 100 mg, Oral, ONCE, 1 dose, On Sat10/16/19 at 0531, DO NOT CRUSH OR OPEN, Routine Given 10/16/2019 5:30 AM EST 100 mg fentaNYL (PF) 50 mcg/mL injection 1 dose, Starting on Sat10/15/19 at 1714, Until Sat10/15/19 at 1716, Darrin Humphrey (o): cabinet override fentaNYL (PF) 50mcg/mL injection 50 mcg, Intravenous, ONCE, 1 dose, On Sat10/15/19 at 1756, If medication ordered subcutaneously, do not administer more than 2 mL as a single injection., STAT Given 10/15/2019 5:16 PM EST 50 mcg HYDROmorphone (DILAUDID) injection 0.5 mg 0.5 mg, Intravenous, ONCE, 1 dose, On Sat10/16/19 at 0501, STAT Given 10/16/2019 5:07 AM EST 0.5 mg iohexol (OMNIPAQUE) 350 mg/mL solution 0-200 mL 0-200 mL, Intravenous, ONCE PRN, 1 dose, Starting on Sat10/15/19 at 1759, Until Sat10/15/19 at 1759, Per Protocol, Warning Vesicant/Irritant Medication , Radiology Contrast, Routine Given 10/15/2019 5:59 PM EST 71 mLs documented in this encounter Active and Recently Administered Medications Times are shown in EST. Scheduled Medication Order 10/14/2019 10/15/2019 10/16/2019 benzonatate (Tessalon) capsule 100 mg 100 mg, Oral, 3 TIMES DAILY, First dose on Sat10/16/19 at 0900, Until Discontinued, DO NOT CRUSH OR OPEN, Routine 0900 (Given - Provid er: Mery Alba, TEJA) benzonatate (Tessalon) capsule 100 mg (COMPLETED) 100 mg, Oral, ONCE, 1 dose, On Sat10/16/19 at 0531, DO NOT CRUSH OR OPEN, Routine 0530 (Given - Provid er: Josephine Torrez RN) fentaNYL (PF) 50mcg/mL injection (COMPLETED) 50 mcg, Intravenous, ONCE, 1 dose, On Lei 10/15/19 at 1756, If medication ordered subcutaneously, do not administer more than 2 mL as a single injection., STAT 1716 (Given - Provider: Darrin Humphrey, RN) HYDROmorphone (DILAUDID) injection 0.5 mg (COMPLETED) 0.5 mg, Intravenous, ONCE, 1 dose, On Sat10/16/19 at 0501, STAT 0507 (Given - Provid er: Josephine Torrez, TEJA) PRN Medication Order 10/14/2019 10/15/2019 10/16/2019 iohexol (OMNIPAQUE) 350 mg/mL solution 0-200 mL (COMPLETED) 0-200 mL, Intravenous, ONCE PRN, 1 dose, Starting on Eli 10/15/19 at 1759, Until Eli 10/15/19 at 1759, Per Protocol, Warning Vesicant/Irritant Medication , Radiology Contrast, Routine 175 (Given - Provider: Armida Graham) No Frequency Medication Order 10/14/2019 10/15/2019 10/16/2019 proparacaine (ALCAINE) 0.5 % ophthalmic solution 1 dose, Starting on Eli 10/15/19 at 1715, Until Sat10/16/19 at 0515, Darrin Humphrey (sso): cabinet override 1716 (Due) documented in this encounter Care Teams Custom Frame Assembler Relationship Specialty Start Date End Date Jameel Cuenca MD [address] [place] [address] [place] [address] PCP - [facility] Medicine 10/15/19 documented as of this encounter
--- OUTSIDE RECORDS SUMMARY | 2024-10-01 10:22 | XMS_ITS | Encounter Summary ---
Author Organization [facility] [place] [address] Care Team Providers Care Boilermaking Supervisor Name Role Phone Jameel Cuenca MD Primary Care Provider [phone] Encounter Details Date Type Department Care Team (Late st Contact Info) Description 10/15/2019 Ophth [place] [address] Mery Mcfarland MD Social History Tobacco Use Types Packs/Day Years Used Date Smoking Tobacco: Never Assessed Sex and Gender Information Value Date Recorded Sex Assigned at Not on file Gender Identity Not on file Sexual Orientation Not on file documented as of this encounter Plan of Treatment Not on file documented as of this encounter Visit Diagnoses Not on filedocumented in this encounter Care Teams Boilermaking Supervisor Relationship Specialty Start Date End Date Jameel Cuenca MD [address] [facility] [facility] [place] [address] PCP - General [facility] Medicine 10/15/19 documented as of this encounter
--- OUTSIDE RECORDS SUMMARY | 2024-10-01 10:22 | XMS_ITS | Encounter Summary ---
Author Organization [facility] [place] [address] Care Team Providers Care Engraver Ornamental Design Name Role Phone Jameel Cuenca MD Primary Care Provider [phone] Encounter Details Date Type Department Care Team (Late st Contact Info) Description 10/15/2019 2:25 PM EST Ancillary Procedure Radiology Library at [facility] [place] [id number] Social History Tobacco Use Types Packs/Day Years Used Date Smoking Tobacco: Never Assessed Sex and Gender Information Value Date Recorded Sex Assigned at Not on file Gender Identity Not on file Sexual Orientation Not on file documented as of this encounter Plan of Treatment Not on file documented as of this encounter Procedures Procedure Name Priority Date/Time Associated Diagnosis Comments FILM LIBRARY STORAGE ONLY CT HEAD AND SPINE STAT 10/15/2019 2:15 PM EST documented in this encounter Results * Film Library- Storage Only CT Head And Spine (10/15/2019 2:15 PM EST) Narrative [facility] - 10/15/2019 2:15 PM EST This exam is auto-finalizing. It's purpose is for storage only. Dontae Mckeon MD IMG FILM LIBRARY ORD ERABLES [place], [place] documented in this encounter Visit Diagnoses Not on filedocumented in this encounter Care Teams Engraver Ornamental Design Relationship Specialty Start Date End Date Jameel Cuenca MD [address] [facility] [place] [address] PCP - [facility] Medicine 10/15/19 documented as of this encounter
--- OUTSIDE RECORDS SUMMARY | 2024-10-01 10:22 | XMS_ITS | Encounter Summary ---
Author Organization [facility] Address [facility] [place] [address] Care Team Providers Care Applied Anthropologist Name Role Phone Jameel Cuenca MD Primary Care Provider [phone] Encounter Details Date Type Department Care Team (Late st Contact Info) Description 10/15/2019 2:15 PM EST Ancillary Procedure Radiology Library at [facility] [place] [phone] Social History Tobacco Use Types Packs/Day Years [...] Comments FILM LIBRARY STORAGE ONLY CT HEAD STAT 10/15/2019 2:12 PM EST documented in this encounter Results * Film Library- Storage Only CT Head (10/15/2019 2:12 PM EST) Narrative [facility] - 10/15/2019 2:12 PM EST This exam is auto-finalizing. It's purpose is for storage only. Dontae Mckeon MD G FILM LIBRARY ORD ERABLES [place], [place] documented in this encounter Visit Diagnoses Not on filedocumented in this encounter Care Teams Applied Anthropologist Relationship Specialty Start Date End Date Jameel Cuenca MD [address] [facility] [address] [place] [address] PCP - [facility] Medicine 10/15/19 documented as of this encounter
--- OUTSIDE RECORDS SUMMARY | 2024-10-01 10:22 | XMS_ITS | Encounter Summary ---
Author Organization [facility] [place] [address] Care Team Providers Care Blocker Hand Name Role Phone Jameel Cuenca MD Primary Care Provider [phone] Encounter Details Date Type Department Care Team (Late st Contact Info) Description 10/15/2019 2:20 PM EST Ancillary Procedure Radiology Library at [facility] [place] [id number] Social History Tobacco Use Types Packs/Day Years [...] Diagnosis Comments FILM LIBRARY STORAGE ONLY CT CHEST ABDOMEN PELVIS STAT 10/15/2019 2:13 PM EST documented in this encounter Results * Film Library- Storage Only CT Chest Abdomen Pelvis (10/15/2019 2:13 PM EST) Narrative [facility] - 10/15/2019 2:13 PM EST This exam is auto-finalizing. It's purpose is for storage only. Dontae Mckeon MD IMG FILM LIBRARY ORD ERABLES [place], [place] documented in this encounter Visit Diagnoses Not on filedocumented in this encounter Care Teams Blocker Hand Relationship Specialty Start Date End Date Jameel Cuenca MD [address] [facility] [place] [address] PCP - [facility] Medicine 10/15/19 documented as of this encounter
[2024-10-01 14:38] LABS: HCT 41.9 % (40.0-50.0); MCH 29.2 pg (27.0-33.0); MCHC 33.4 % (32.0-36.0); MCV 87 fL (80-95); MPV 10.4 fL (8.0-11.0); Platelet Count 129 10^3/uL (130-400); RDW 14.1 % (11.8-14.1); WBC 7.07 10^3/uL (4.4-10.8)
[2024-10-01 14:51] LABS: ALT 61 U/L (16-63); AST 125 U/L (15-37); Albumin 4.1 g/dL (3.4-5.0); Alkaline Phosphatase 131 U/L (46-116); Anion Gap 12.5 mmol/L (3-11); BUN 8 mg/dL (7-18); Bilirubin, Total 1.02 mg/dL (0.2-1.0); CO2 26.5 mmol/L (21.0-32.0); Calcium 9.8 mg/dL (8.5-10.1); Chloride 98 mmol/L (98-107); Estimated GFR 90.56 (mL/min/1.73m2); Glucose 119 mg/dL (74-106); Potassium 3.7 mmol/L (3.5-5.1); Sodium 137 mmol/L (136-145); Total Protein 8.4 g/dL (6.4-8.2)
== END 2024-10-01 10:21 | disposition home or self-care (01) ==
LOC: NCHCN 10:20
PROVIDERS: PCP Physician Assistant; Visit Provider Physician Assistant
DX: E78.5 Hyperlipidemia, unspecified (principal)
CPT/HCPCS: 80053; 85027

== ENCOUNTER 2025-03-29 15:21 | Outpatient (REF) | payer BC, SELFPAY ==
[2025-03-29 15:37] LABS: HCT 46.5 % (40.0-50.0); MCH 27.3 pg (27.0-33.0); MCHC 32.3 % (32.0-36.0); MCV 85 fL (80-95); MPV 11.1 fL (8.0-11.0); Platelet Count 183 10^3/uL (130-400); RBC 5.49 10^6/uL (4.36-5.78); RDW 14.2 % (11.8-14.1); WBC 5.81 10^3/uL (4.4-10.8)
[2025-03-29 16:26] LABS: ALT 45 U/L (16-63); AST 31 U/L (15-37); Albumin 4.4 g/dL (3.4-5.0); Alkaline Phosphatase 78 U/L (46-116); Anion Gap 8.1 mmol/L (3-11); BUN 19 mg/dL (7-18); Bilirubin, Total 0.5 mg/dL (0.2-1.0); CO2 27.9 mmol/L (21.0-32.0); CREATININE 1.3 mg/dL (0.70-1.30); Calcium 9.6 mg/dL (8.5-10.1); Calculated LDL 111 mg/dL (<100); Chloride 99 mmol/L (98-107); Cholesterol 188 mg/dL (<200); Estimated GFR 65.69 (mL/min/1.73m2); Glucose 103 mg/dL (74-106); HDL Cholesterol 56 mg/dL (>or=40); Potassium 4.2 mmol/L (3.5-5.1); Sodium 135 mmol/L (136-145); Total Protein 7.9 g/dL (6.4-8.2); Triglyceride 109 mg/dL (<150)
== END 2025-03-29 15:22 | disposition home or self-care (01) ==
LOC: NCHCN 15:21
PROVIDERS: PCP Physician Assistant; Visit Provider Physician Assistant
DX: E78.5 Hyperlipidemia, unspecified (principal); Z12.5 Encounter for screening for malignant neoplasm of prostate
CPT/HCPCS: 80053; 80061; 84153; 85027